=== PATIENT | female | born 1995 ===

== ENCOUNTER 2021-08-05 09:12 | Inpatient (IN) | payer SELFPAY ==
[2021-08-05] MEDS ORDERED: METHYLERGONOVINE MALEATE 0.2 MG/ML VIAL IM PRN (12:32)
[2021-08-05] MEDS ORDERED: OXYTOCIN 10 UNIT/1 ML INJ IM PRN (12:32)
[2021-08-05] MEDS ORDERED: miSOPROStol 200 MCG TAB PR PRN (12:32)
[2021-08-05] MEDS ORDERED: AMPICILLIN/NS 2 GM/100 ML 2 GM/100 ML BAG IV ONE (13:00)
[2021-08-05] MEDS ORDERED: BUTORPHANOL 2 MG/1 ML INJ IV PRN ×2 (13:00)
[2021-08-05] MEDS ORDERED: CARBOPROST TROMETHAMINE 250 MCG/1 ML INJ IM PRN (13:00)
[2021-08-05] MEDS ORDERED: TERBUTALINE 1 MG/1 ML INJ SUB-Q PRN (13:00)
[2021-08-05] MEDS ORDERED: OXYTOCIN DRIP 30 UNITS/500 ML BAG IV SCH (13:00)
[2021-08-05] MEDS ORDERED: LOPERAMIDE 2 MG CAP PO PRN (13:00)
[2021-08-05] MEDS ORDERED: LIDOCAINE (2%) 20 MG/1 ML VIAL 20 ML MDV INFILTRATI NR (13:00)
[2021-08-05] MEDS ORDERED: ePHEDrine SULFATE 50 MG/1 ML INJ IV PRN (13:00)
[2021-08-05] MEDS ORDERED: ACETAMINOPHEN 325 MG TAB PO PRN (13:00)
[2021-08-05 14:10] LABS: Amphetamine Screen,Urine Negative; Benzodiazepines Screen,Urine Negative; Cannabinoid Screen,Urine Negative; Cocaine Screen,Urine Negative; Methadone Screen,Urine Negative; Opiate Screen,Urine Negative
[2021-08-05] MEDS: LACTATED RINGERS 1,000 ML IV SCH ×3 (14:33→20:12)
[2021-08-05 15:01] LABS: Hematocrit 24.8 % (30.3-42.9); Hemoglobin 7.4 gm/dl (10.1-14.3); Mean Corpuscular HGB Conc 30 % (30-34); Platelet Count 262 K/mm3 (140-440); Red Blood Count 3.56 M/mm3 (3.65-5.03); Red Cell Distribution Width 17.4 % (13.2-15.2)
[2021-08-05 15:10] LABS: Mean Corpuscular Volume 70 fl (79-97)
[2021-08-05] MEDS: OXYTOCIN DRIP 30 UNITS/500 ML BAG IV SCH ×5 (15:57→22:12)
[2021-08-05] MEDS ORDERED: AMPICILLIN/NS 1 GM/50 ML 1 GM/50 ML BAG ONE (20:07)
[2021-08-05] MEDS ORDERED: AMPICILLIN/NS 1 GM/50 ML 1 GM/50 ML BAG IV SCH (21:20)
[2021-08-05] MEDS ORDERED: MINERAL OIL 30 ML ORAL LIQD PO PRN (22:00)
--- NOTE | 2021-08-05 23:45 | History and Physical Report ---
History of Present Illness Date of admission: 08/05/21 23:23 Past History Past Medical History: no pertinent history Past Surgical History: no surgical history Family/Genetic History: none - Obstetrical History Expected Date of Delivery: 09/04/21 Actual Gestation: 35 Week(s) 5 Day(s) : 4 Para: 3 Number of Living Children: 3 Medications and Allergies Allergies Allergy/AdvReac Type Severity Reaction Status Date / Time No Known Allergies Allergy Unverified 08/05/21 11:16 Active Meds: Active Medications Acetaminophen (Acetaminophen 325 Mg Tab) 650 mg PO Q4H PRN PRN Reason: Pain, Mild (1-3) Butorphanol Tartrate (Butorphanol 2 Mg/1 Ml Inj) 1 mg IV Q2H PRN PRN Reason: Pain, Moderate(4-6) LABOR PAIN Butorphanol Tartrate (Butorphanol 2 Mg/1 Ml Inj) 2 mg IV Q2H PRN PRN Reason: Pain , Severe (7-10) Last Admin: 08/05/21 22:10 Dose: 2 mg Documented by: Carboprost Tromethamine (Carboprost Tromethamine 250 Mcg/1 Ml Inj) 250 mcg IM ONCE PRN PRN Reason: Uterine Bleeding Stop: 08/06/21 20:00 Ephedrine Sulfate (Ephedrine Sulfate 50 Mg/1 Ml Inj) 10 mg IV Q2M PRN PRN Reason: Hypotension Oxytocin/Sodium Chloride (Pitocin/Ns 30 Unit/500ml) 30 units in 500 mls @ 2 mls/hr IV TITR ROYER; Protocol Last Admin: 08/05/21 22:12 Dose: 10 ml/hr, 10 mls/hr Documented by: Lactated Ringer's (Lactated Ringers) 1,000 mls @ 125 mls/hr IV DIRECT ROYER Last Admin: 08/05/21 20:12 Dose: 125 mls/hr Documented by: Oxytocin/Sodium Chloride (Pitocin/Ns 30 Unit/500ml) 30 units in 500 mls @ 40 mls/hr IV TITR ROYER; Protocol Ampicillin Sodium (Ampicillin/Ns 1 Gm/50 Ml) 1 gm in 50 mls @ 100 mls/hr IV Q4H ROYER; Protocol Stop: 08/06/21 21:19 Last Admin: 08/05/21 20:40 Dose: 100 mls/hr Documented by: Loperamide HCl (Loperamide 2 Mg Cap) 2 mg PO ONCE PRN PRN Reason: give with Hemabate Stop: 08/06/21 20:00 Methylergonovine Maleate (Methylergonovine Maleate 0.2 Mg/Ml Vial) 0.2 mg IM ONCE PRN PRN Reason: Uterine Bleeding Stop: 08/06/21 20:00 Mineral Oil (Mineral Oil 30 Ml Oral Liqd) 30 ml PO QHS PRN PRN Reason: Constipation Misoprostol (Misoprostol 200 Mcg Tab) 800 mcg WA ONCE PRN PRN Reason: Uterine Bleeding Stop: 08/06/21 20:00 Oxytocin (Oxytocin 10 Unit/1 Ml Inj) 10 unit IM ONCE PRN PRN Reason: Uterine Bleeding Stop: 08/06/21 20:00 Terbutaline Sulfate (Terbutaline 1 Mg/1 Ml Inj) 0.25 mg SUB-Q ONCE PRN PRN Reason: Hyperstimulation/Hypertonicity Review of Systems All systems: negative Eyes: deferred Ears, nose, mouth and throat: deferred Genitourinary: leakage of fluid, pelvic pain, contractions - Vital Signs Vital signs: Vital Signs Temp Pulse Resp BP Pulse Ox 98.3 F 94 H 16 115/72 98 08/05/21 10:33 08/05/21 10:33 08/05/21 10:33 08/05/21 10:33 08/05/21 10:33 Temp Pulse Resp BP Pulse Ox 97.7 F 100 H 18 114/75 99 08/05/21 23:26 08/05/21 23:40 08/05/21 23:26 08/05/21 23:40 08/05/21 23:37 - Physical Exam Breasts: Positive: deferred Cardiovascular: Regular rate, Normal S1, Normal S2 Lungs: Positive: Clear to auscultation, Normal air movement Abdomen: Positive: normal appearance, soft, normal bowel sounds. Negative: distention, tenderness Genitourinary (Female): Positive: normal external genitalia, normal perenium Vulva: both: normal Vagina: Positive: normal moisture. Negative: discharge Cervix: Negative: lesion, discharge Uterus: Positive: normal size, normal contour Adnexa: both: normal Anus/Rectum: Positive: normal perianal skin, heme negative. Negative: rectal mass, hemorrhoids Extremities: Deep Tendon Reflex Grade: Normal +2 - Obstetrical FHR: auscultation normal Cervical Dilatation: 1 Cervical Effacement Percentage: 50 station: -3 Uterine Contraction Pattern: Irregular Uterine Tone Measurement Phase: Contraction Uterine Contraction Intensity: Moderate Results Result Diagrams: 08/05/21 14:00 Abnormal lab results 08/05/21 08/05/21 Range/Units 10:50 14:00 RBC 3.56 L (3.65-5.03) M/mm3 Hgb 7.4 L (10.1-14.3) gm/dl Hct 24.8 L (30.3-42.9) % MCV 70 L (79-97) fl MCH 21 L (28-32) pg RDW 17.4 H (13.2-15.2) % Membranes Rupture Positive A (Negative) All other labs normal. Assessment and Plan IUP at 35.5 weeks here with LOF and no care. Admit to L&D
[2021-08-06] MEDS ORDERED: diphenhydrAMINE 25 MG CAP PO PRN (10:00)
[2021-08-06] MEDS ORDERED: WITCH HAZEL/ GLYCERIN PAD TP PRN (10:00)
[2021-08-06] MEDS ORDERED: LANOLIN/ZINC/DIMETHICONE (LANSINOH) 7 GM TP PRN (10:00)
[2021-08-06] MEDS ORDERED: PROMETHAZINE 25 MG RECT SUPP PR PRN (11:00)
[2021-08-06] MEDS ORDERED: ONDANSETRON 4 MG/2 ML INJ IV PRN (11:00)
[2021-08-06] MEDS ORDERED: PROMETHAZINE 25 MG TAB PO PRN (11:00)
[2021-08-06] MEDS: IBUPROFEN 600 MG TAB PO SCH (16:35)
--- NOTE | 2021-08-06 16:53 | Progress Note ---
Assessment and Plan PPD 1 s/p with no care at 35 weeks. Doing well. Plan for discharge on tomorrow if baby able to go. Subjective - Subjective Date of service: 08/06/21 Principal diagnosis: PPD 1 s/p . Patient reports: appetite normal, voiding normally, pain well controlled, ambulating normally [place]: doing well Objective - Vital Signs Latest vital signs: Vital Signs Temp Pulse Resp BP BP Pulse Ox Pulse Ox 08/06/21 12:05 98.1 F 86 18 117/76 98 08/06/21 08:20 100 08/06/21 08:13 98.2 F 64 18 129/72 100 08/06/21 01:18 98.2 F 66 18 113/78 98 08/06/21 01:00 98 08/06/21 00:52 89 100 08/06/21 00:47 73 98 08/06/21 00:42 72 99 08/06/21 00:40 70 114/66 08/06/21 00:37 78 99 08/06/21 00:32 70 99 08/06/21 00:27 72 99 08/06/21 00:25 71 110/65 08/06/21 00:22 72 99 08/06/21 00:17 73 99 08/06/21 00:12 76 99 08/06/21 00:10 71 108/64 08/06/21 00:07 76 98 08/06/21 00:02 83 99 08/05/21 23:57 81 99 08/05/21 23:55 85 105/68 08/05/21 23:52 81 99 08/05/21 23:47 98 H 99 08/05/21 23:42 92 H 99 08/05/21 23:40 100 H 114/75 08/05/21 23:37 90 99 08/05/21 23:32 85 99 08/05/21 23:27 89 99 08/05/21 23:26 97.7 F 90 18 114/60 99 08/05/21 23:22 88 99 08/05/21 23:17 88 99 08/05/21 23:12 83 99 08/05/21 23:07 85 99 08/05/21 23:02 87 99 08/05/21 23:00 85 114/60 08/05/21 22:57 92 H 99 11/23/21 22:52 96 H 92 21 22:50 104 H 88 2321 22:47 125 H 99 2321 22:42 97 H 100 21 22:37 98 H 100 08/05/21 22:32 82 98 08/05/21 22:31 88 135/70 92 2321 22:27 121 H 96 08/05/21 22:25 95 H 87 2321 22:22 77 98 08/05/21 22:17 91 H 98 2321 22:12 88 100 21 22:07 88 100 2321 22:02 91 H 100 21 22:01 88 130/73 21 21:57 81 99 21 21:52 88 100 21 21:47 86 100 21 21:42 81 100 21 21:37 103 H 99 08/05/21 21:33 98.5 F 08/05/21 21:32 85 99 21 21:31 78 121/77 21 21:27 83 100 2321 21:22 86 99 21 21:17 94 H 100 21 20:35 83 100 21 20:30 85 111/72 100 08/05/21 20:25 82 100 21 20:20 86 100 21 20:15 98 H 100 21 20:10 76 100 21 20:05 80 100 08/05/21 20:00 85 127/75 100 23/21 19:55 95 H 99 21 18:54 103 H 100 08/05/21 18:49 79 100 23/21 18:44 84 100 23/21 18:39 86 99 08/05/21 18:34 86 100 08/05/21 18:30 80 129/77 08/05/21 18:29 99 H 100 08/05/21 18:24 82 100 23/21 18:19 86 99 21 18:14 83 100 08/05/21 18:09 91 H 99 21 18:04 90 100 08/05/21 18:01 93 H 118/72 08/05/21 17:59 88 99 08/05/21 17:54 88 100 08/05/21 17:49 97 H 100 08/05/21 17:44 86 99 08/05/21 17:39 97 H 100 08/05/21 17:34 84 100 08/05/21 17:30 97 H 121/72 08/05/21 17:29 105 H 98 08/05/21 17:24 88 100 08/05/21 17:19 88 99 08/05/21 17:14 84 100 08/05/21 17:09 84 100 08/05/21 17:04 89 99 08/05/21 17:00 94 H 114/80 08/05/21 16:59 88 99 08/05/21 16:54 93 H 99 08/05/21 16:49 89 99 Intake and Output 08/06/21 08/06/21 08/06/21 06:59 14:59 22:59 Intake Total 600 Balance 600 Intake: Intake, Free Water 600 Other: # Voids Void 1 Estimated Blood Loss 100 - Exam Cardiovascular: Present: Regular rate, Normal S1, Normal S2 Lungs: Present: Clear to auscultation, Normal air movement Abdomen: Present: normal appearance, soft, normal bowel sounds Vulva: both: normal Uterus: Present: normal, firm Extremities: Present: normal
--- NOTE | 2021-08-06 17:35 | Discharge Summary ---
Providers - Providers Date of Admission: 08/05/21 23:23 Date of discharge: 08/06/21 Attending physician: FRANCISCO ESCOBAR 08/06/21 11:06 Consult to Case Management [CONS] Routine Services Needed at Discharge: Other Notified:: Yes Comment:: no PNC Primary care physician: FRANCISCO ESCOABR Hospitalization Reason for admission: rupture of membranes Delivery: Episiotomy: none Laceration: none Other procedures: none Discharge diagnosis: IUP at term delivered baby: female Hospital course: unremarkable Condition at discharge: Stable Disposition: 01 HOME / SELF CARE / HOMELESS - Discharge Diagnoses (1) No care in current in third trimester Status: Acute Plan - Provider Discharge Summary Activity: routine, no sex for 6 weeks, no heavy lifting 4 weeks, no strenuous exercise Diet: routine Instructions: routine Additional instructions: [] Smoking cessation referral if applicable(refer to patient education folder for contact #) [] Refer to [facility]'s [facility] Booklet Call your doctor immediately for: * Fever > 100.5 * Heavy vaginal bleeding ( >1 pad per hour) * Severe persistent headache * Shortness of breath * Reddened, hot, painful area to leg or breast * Drainage or odor from incision. * Keep incision clean and dry at all times and follow doctor's instructions regarding bathing/showering - Follow up plan Follow up: FRANCISCO ESCOBAR MD [Primary Care Provider] - 6 Weeks
[2021-08-06 21:41] LABS: Hematocrit 24.8 % (30.3-42.9); Hemoglobin 7.5 gm/dl (10.1-14.3)
[2021-08-06] MEDS ORDERED: MAGNESIUM HYDROXIDE (MOM) ORAL LIQD UDC PO PRN (22:00)
[2021-08-07] MEDS: IBUPROFEN 600 MG TAB PO SCH ×4 (00:42→16:00)
[2021-08-07] MEDS ORDERED: TETANUS,DIPH,PERTUSS(ACELL) VACCINE 0.5 ML SYRINGE IM ONE (06:00)
[2021-08-07] MEDS ORDERED: FLU VACC QUAD 2021-22(6MOS UP)/PF 60 MCG/0.5 ML SYRINGE IM ONE (12:00)
[2021-08-07 17:58] VITALS: BP 108/74
== END 2021-08-07 16:45 | disposition home or self-care (01) | DRG 807 ==
LOC: TRG 09:12 → APU 09:13 → LD 14:50 → TRG 23:22 → LD 23:23 → OB 08-06 01:22
PROVIDERS: ADMIT Obstetrics & Gynecology; ATTEND Obstetrics & Gynecology
PROC: 10E0XZZ Delivery of Products of Conception, External Approach (ICD-10-PCS; principal; 2021-08-05)
PROC: 3E0234Z Introduction of Serum, Toxoid and Vaccine into Muscle, Percutaneous Approach (ICD-10-PCS; 2021-08-07)
DX: O80 Encounter for full-term uncomplicated delivery (principal); Z37.0 Single live birth; Z3A.35 35 weeks gestation of pregnancy; Z20.822 Contact with and (suspected) exposure to COVID-19; Z23 Encounter for immunization
CPT/HCPCS: 36415; 80307; 84112; 85014; 85018; 85027; 86592; 86706; 86762; 86850; 86900; 86901; 87806; 88307; G0378; J3490; J0290; J0595; J2590; J7120; U0003